=== PATIENT | male | born 1965 | race Caucasian/White ===

== ENCOUNTER 2021-04-04 06:20 | Day surgery (SDC) | payer OTHER ==
[~2021-04-04 06:20] MED LIST: Lactated Ringers 1,000 ML IV SCH; Lidocaine 1%/Sod Bicarbonate in NS 8.4% 1 ML Syringe IDERM PRN; Sodium Chloride 0.9% 10 ML Syringe FLUSH SCH
[2021-04-04] MEDS ORDERED: Lactated Ringers 1,000 ML IV SCH (07:00)
[2021-04-04] MEDS ORDERED: Lidocaine 1% 4 ML ONE (07:46)
[2021-04-04] MEDS ORDERED: Propofol 200 MG/20 ML SDV ONE ×4 (07:47→09:08)
[2021-04-04 10:03] VITALS: BP 120/85; PULSE 73
== END 2021-04-04 10:16 | disposition home or self-care (01) ==
LOC: JD.SDS 06:20
PROVIDERS: ATTEND Surgery
DX: D12.0 Benign neoplasm of cecum (principal); D12.5 Benign neoplasm of sigmoid colon; K62.1 Rectal polyp; K57.30 Diverticulosis of large intestine without perforation or abscess without bleeding; I10 Essential (primary) hypertension; E11.9 Type 2 diabetes mellitus without complications; Z80.0 Family history of malignant neoplasm of digestive organs; Z90.49 Acquired absence of other specified parts of digestive tract; Z98.890 Other specified postprocedural states; Z88.0 Allergy status to penicillin; Z79.899 Other long term (current) drug therapy; Z87.891 Personal history of nicotine dependence; Z79.84 Long term (current) use of oral hypoglycemic drugs
CPT/HCPCS: 45380; 45385; 82947; J2704; J7120; 00812

== ENCOUNTER 2021-08-22 08:36 | Day surgery (SDC) | payer OTHER ==
[~2021-08-22 08:36] MED LIST changes: +Sodium Chloride 0.9% 10 ML Syringe FLUSH PRN
[2021-08-22] MEDS ORDERED: Propofol 200 MG/20 ML SDV ONE ×2 (10:08→10:45)
[2021-08-22] MEDS ORDERED: Lidocaine 1% 4 ML ONE (10:09)
[2021-08-22] MEDS ORDERED: Midazolam 1 MG/ML 2 ML SDV ONE (10:15)
[2021-08-22 11:56] VITALS: BP 125/78; PULSE 69
== END 2021-08-22 12:05 | disposition home or self-care (01) ==
LOC: JD.SDS 08:36
PROVIDERS: ATTEND Surgery
DX: Z12.11 Encounter for screening for malignant neoplasm of colon (principal); D12.3 Benign neoplasm of transverse colon; K57.30 Diverticulosis of large intestine without perforation or abscess without bleeding; K64.8 Other hemorrhoids; K64.0 First degree hemorrhoids; I10 Essential (primary) hypertension; E11.9 Type 2 diabetes mellitus without complications; Z80.0 Family history of malignant neoplasm of digestive organs; Z90.49 Acquired absence of other specified parts of digestive tract; Z98.890 Other specified postprocedural states; Z86.16 Personal history of COVID-19; Z79.899 Other long term (current) drug therapy; Z87.891 Personal history of nicotine dependence; Z88.0 Allergy status to penicillin; Z79.84 Long term (current) use of oral hypoglycemic drugs
CPT/HCPCS: J2250; J2704; J7120